=== PATIENT | female | born 1960 | race Caucasian/White ===

== ENCOUNTER 2018-03-06 07:41 | Emergency (ER) | payer OTHER ==
[~2018-03-06] VITALS: Ht 165.1 cm; Wt 113.4 kg
[2018-03-06 07:41] VITALS: Ht 165.1 cm; Wt 113.4 kg
[~2018-03-06 07:41] MED LIST: AMLODIPINE BESYL5 M1 PO; ESCITALOPRAM20 M1 PO; FLEXERIL10 MG PO; MONTELUKAST SOD10 M1 PO; MOT800 PO; PROAIR HFA0.09 MG/A1 INH; SYMBICORT1 AE2; TEGRETOL200 MG PO; VENTOLIN H0.09 MG/A1 INH
== END 2018-03-06 13:12 | disposition expired ==
LOC: ED 07:41
DX: I46.9 Cardiac arrest, cause unspecified (principal)
CPT/HCPCS: 83880; J7030